=== PATIENT | male | born 1965 | race Caucasian/White ===

== ENCOUNTER 2023-09-03 14:53 | Emergency (ER) | payer MEDICAID ==
--- NOTE | 2023-09-03 16:09 | XRAY Report ---
PROCEDURE: Foot 3+V LT INDICATIONS: Trauma TECHNIQUE: 3 views of the foot were acquired. COMPARISON: None. FINDINGS: Bones: Mild first MTP joint space narrowing. No acute fracture or dislocation of the midfoot or foref oot. Calcaneus fractures findings are separately dictated. Soft tissues: No suspicious calcifications. IMPRESSION: No acute fracture or dislocation in the midfoot or forefoot. Calcaneus findings are separately dictat ed. Reviewed by: Josiah Lizama MD on 09/03/2023 4:08 PM PDT Approved by: Josiah Lizama MD on 09/03/2023 4:08 PM PDT Station ID: [id number]
--- NOTE | 2023-09-03 16:10 | XRAY Report ---
PROCEDURE: Ankle 3+V LT INDICATIONS: TRAUMA TECHNIQUE: 3 views of the ankle were acquired. COMPARISON: None. FINDINGS: Bones: Tibiotalar alignment is maintained. No tibial, talar, or fibular fracture identified. Soft tissues: There is soft tissue swelling. IMPRESSION: No acute injury in the ankle. Calcaneal fracture findings are separately dictated. Reviewed by: Josiah Lizama MD on 09/03/2023 4:09 PM PDT Approved by: Josiah Lizama MD on 09/03/2023 4:09 PM PDT Station ID: [id number]
--- NOTE | 2023-09-03 16:11 | XRAY Report ---
PROCEDURE: Calcaneus 2+V LT INDICATIONS: TRAUMA TECHNIQUE: Two views of the calcaneus were acquired. COMPARISON: None. FINDINGS: Bones: Complex comminuted calcaneal fracture extending from the tuberosity to the intra-articular por tions of the subtalar joint. Soft tissues: Soft tissue swelling is present. IMPRESSION: Complex comminuted intra-articular calcaneal fracture extending from the tuberosity. Reviewed by: Josiah Lizama MD on 09/03/2023 4:10 PM PDT Approved by: Josiah Lizama MD on 09/03/2023 4:10 PM PDT Station ID: [id number]
--- NOTE | 2023-09-03 16:27 | CT Report ---
PROCEDURE: Lower Extremity LT WO INDICATIONS: calcaneal fracture on xray TECHNIQUE: Noncontrast 3-mm axial sections acquired from the distal tibial shaft to the talar dome, with coronal and sagittal reformats. For radiation dose reduction, the following was used: automated exposure c ontrol, adjustment of mA and/or kV according to patient size. COMPARISON: Same-day radiographs FINDINGS: Image quality: Diagnostic Bones: Comminuted fracture of the calcaneus extending from the calcaneal tuberosity and plantar surfa ce, with moderate comminution and displacement, involving multiple facets of the subtalar joint. Ther e is subluxation in particular of the posterior facet. There are multiple intra-articular bone chips. Tibiotalar alignment is maintained. Age-indeterminate possible tiny avulsion fracture fragment at the lateral malleolus.No other displace d fracture is identified. Soft tissues: There is diffuse soft tissue swelling. IMPRESSION: Complex calcaneal fracture described above. Possible tiny avulsion fracture fragment from the lateral malleolus, age indeterminate. Reviewed by: Josiah Lizama MD on 09/03/2023 4:26 PM PDT Approved by: Josiah Lizama MD on 09/03/2023 4:26 PM PDT Station ID: [id number]
--- NOTE | 2023-09-03 16:39 | ED Physician Documentation ---
PD HPI LOWER EXT INJURY - Stated complaint Stated Complaint: LT HEEL PX - Chief complaint Chief Complaint: Trauma Ext - History obtained from History obtained from: Patient - History of Present Illness PD HPI LOW EXT INJURY LOCATION: Left, Foot (heel area) Type of injury: Fall (not a fall per se, but stepped down from ladder rung thinking it was not as far as it was. Steped about 2-3 feet, landing firmly on heel onto hard surface with pain abruptly in heel. Has already had significant swelling of ankle and heel area.) Where injury occurred: Home Timing - onset: How many hours ago (few), Today Timing - details: Abrupt onset, Still present Review of Systems Skin: denies: Abrasion (s), Laceration (s) Musculoskeletal: denies: Back pain PD PAST MEDICAL HISTORY - Past Medical History Past Medical History: Yes Endocrine/Autoimmune: HyPOthyroidism Psych: Depression, ADD/ADHD - Past Surgical History Past Surgical History: Yes General: Cholecystectomy - Present Medications Home Medications: Ambulatory Orders Medication Instructions Recorded Confirmed HYDROcod/ACETAM 5/325 [[place] 5/325] 1 ea PO Q6H PRN #20 tablet 09/03/23 Meloxicam [Mobic] 7.5 mg PO BID 10 Days #20 tablet 09/03/23 - Allergies Allergies/Adverse Reactions: Allergies Allergy/AdvReac Type Severity Reaction Status Date / Time No Known Drug Allergies Allergy Verified 09/03/23 16:29 - Social History Does the pt smoke?: No Smoking Status: Never smoker Does the pt drink ETOH?: Yes Does the pt have substance abuse?: No Substance Use and Type: Marijuana - Immunizations Immunizations are current?: Yes - POLST Patient has POLST: No PD ED PE NORMAL - Vitals Vital signs reviewed: Yes - General General: Alert and oriented X 3, Well developed/nourished, Other (in pain due to ankle/heel swelling but l3ess with it rested up. ) - Back Back: No spinal TTP - Derm Derm: Normal color, Warm and dry - Extremities Extremities: Other (left heel and ankle with notable swelling/effusion. Most tender at heel. Achilles area firm and intact. No pain lower leg nor knee area. Good color and cap refill in toes and palpable DP pulse. ) - Neuro Neuro: Alert and oriented X 3, No motor deficit, No sensory deficit Results - Vitals Vitals: Vital Signs - 24 hr 09/03/23 09/03/23 14:58 17:30 Heart Rate 73 63 Respiratory 16 13 Rate Blood Pressure 118/74 118/79 O2 Saturation 99 100 Oxygen O2 Source Room air - Rads (name of study) foot and ankle/heel Relevant Findings:: Prelim report reviewed, EMP independent interpretation of test (acute displaced calcaneal fracture.) ankle/foot CT Relevant Findings:: Prelim report reviewed, EMP independent interpretation of test (comminuted fracture of calcaneus. ) Procedures - Splint (location) - Minor ankle/foot Splint applied by: Nurse, Tech (instructed to be very well bulky padded more than usual.) Type of splint: Fiberglass, Posterior, Stirrup Other: Patient tolerated well, No complications, Neurovascular intact, Crutches provided PD Medical Decision Making - ED course Complexity details: reviewed results (I reviewed the xray and CT findings with him, the expected course of waiting swelling to go down week or so, See Ortho, discuss surgery timecourse as presume will need that for repair. ), re-evaluated patient (he was driving so not given opioid in ER, however will need some short term for pain as heel fractures typically quite painful. ), considered differential (initial xrays ordered in waiting room due to mechanism by triage. I reviewed the xray results and ordered CT of area as he was still in [place]. subsequent exam when back to room. ), d/w patient, d/w color consultant (Dr. Olson, lead radiation therapist, with phone consultation only regarding timeframe for followup and confirm treatment plan. I had already gotten CT imaging and Ortho asks for 3-D reconstructions. This was requested of city magistrate by our [employer]. ) Departure - Departure Disposition: 01 Home, Self Care Clinical Impression: Left calcaneal fracture, Fall from ladder Condition: Stable Record reviewed to determine appropriate education?: Yes Instructions: ED Fx Foot Follow-Up: Zuahir Olson MD [Provider Admit Priv/Credential] - Prescriptions: Meloxicam [Mobic] 7.5 mg PO BID 10 Days #20 tablet HYDROcod/ACETAM 5/325 [[place] 5/325] 1 ea PO Q6H PRN #20 tablet PRN Reason: Pain Comments: The big issue with this improving and also the pain decreasing is to allow the swelling to decrease the best. Part of it is just going to swell up because of the fracture but the tighter space within the foot will hurt a lot with the swelling. The off of it and try to have your foot elevated rested and iced without pressure on the heel is much as possible. Follow-up with Ortho orthopedic clinic in about a week to 10 days. The orthopedist typically like a good amount of time for the swelling to go down and these before considering surgery. Most of the time heal fractures like this will require surgery but that will be a discussion with orthopedist. I provided the name of the orthopedist on-call today but I believe he is leaving town for a week and there will be another orthopedist on as well. The follow-up can be with any other providers at the clinic. Obviously you need to take care of your mother so activity as you need to but nonweightbearing or toe-touch and at most for balance and rest and elevate when you can. Anti-inflammatories such as meloxicam which is a longer-lasting anti- inflammatory twice daily for the next 7 to 10 days. Add Tylenol 500 to 650 mg every 4-6 hours for pain in addition and I would consider it regularly for the next several days to a week. You can add hydrocodone/acetaminophen if needed for worse pain which is an opiate/narcotic medication but the heel fractures like this will tend to hurt a lot. We did place a well-padded splint on but if the swelling develops enough that it is feeling too tight and please return to the ER for us splint change. Otherwise as the swelling goes down the splint will not fit appropriately and they will likely change it on the follow-up appointment. I sent your prescription to your preferred pharmacy, [facility]. I am prescribing a short course of narcotic pain medication for you. These are potentially dangerous and addictive medications that should be used carefully. These medications may constipate you. Take an eiio-xum-brdauhh stool softener such as docusate twice daily with plenty of water while taking these medications. If you go 24 hours without a bowel movement, take [id number] MiraLAX, per package instructions. Do not drink or drive while taking these medications. If you received narcotic or sedating medications while in the emergency department do not drive for 24 hours. Store this medication in a safe, secure place and out of reach of children. It is a violation of federal law to give or sell this medication to another person or to use in a manner other than prescribed. The ED will not refill narcotic prescriptions, including prescriptions lost or stolen. You can dispose of unwanted medications at the [facility]'s office or at several pharmacies such as [facility]. Forms: PCP List Discharge Date/Time: 09/03/23 18:00
[2023-09-03 17:32] VITALS: BP 118/79; O2SAT 100
== END 2023-09-03 18:00 | disposition home or self-care (01) ==
LOC: ED 14:53
DX: S92.062A Displaced intraarticular fracture of left calcaneus, initial encounter for closed fracture (principal); W11.XXXA Fall on and from ladder, initial encounter; E03.9 Hypothyroidism, unspecified
CPT/HCPCS: 29515; 99284